=== PATIENT | male | born 1970 | race Caucasian/White ===

== ENCOUNTER 2017-11-28 17:14 | Emergency (ER) | payer OTHER ==
[2017-11-28] MEDS: HYDROCODONE/APAP (5/325) TAB PO (18:56)
== END 2017-11-28 21:21 | disposition home or self-care (01) ==
LOC: FTE 17:14
DX: S92.021A Displaced fracture of anterior process of right calcaneus, initial encounter for closed fracture (principal); M77.31 Calcaneal spur, right foot; W17.89XA Other fall from one level to another, initial encounter; Y92.9 Unspecified place or not applicable
CPT/HCPCS: 29515; 73630; 99283-25